=== PATIENT | female | born 1990 | race Caucasian/White ===

== ENCOUNTER 2019-06-17 23:25 | Inpatient (IN) | payer BC ==
[2019-06-18] MEDS ORDERED: Nicotine 21 MG PATCH TOP SCH (00:30)
[2019-06-18] MEDS ORDERED: Nicotine 14 MG PATCH ONE (00:35)
--- NOTE | 2019-06-18 00:39 | PDOC.FPRHP ---
- History of Present Illness Chief Complaint: right lateral chest pain History of Present Illness: 29-year-old female with past medical history of polycythemia, diagnosed four months ago, presents for emergency department via transfer with a right lower lobe pulmonary emboli. Patient woke up this morning with right lateral chest pain with deep inspiration. This pain slowly worsened throughout the day becoming excruciating at 6 PM. She went to urgent care originally sent the emergency department. Patient denies any shortness of breath or palpitations. Patient denies any dizziness/lightheadedness/near passing out. Patient denies any headache nausea/ vomiting/diarrhea. Pt states she has not recently been immobile, denies long trips in car or plane. She denies any history of DVT or PE. Pt states she started to experience the sensation of "a lump in her throat," on Tuesday, which spread to central chest pain. She thought it was related to her PUD and reflux symptoms. She smokes 1ppd of cigarettes. LMP was in 2012. Pt takes depo-prevara for contraception management, and does not experience periods on this medication. She tried phlebotomy for the polycythemia once, but did not like the way it made her feel to continue the recommended treatment of the polycythemia. ED course: D-dimer 722, CTA: several small PE in RLL. Possible surrounding infarctions in lung. Pt started on Heparin drip and treated with dilaudid, ketorolac, and morphine for pain. EKG sinus tach at 107 bpm. - Allergies/Adverse Reactions Allergies Allergy/AdvReac Type Severity Reaction Status Date / Time No Known Drug Allergies Allergy Unverified 06/18/19 03:38 - Home Medications Medication Instructions Recorded Confirmed Type HYDROcodone Bit/APAP 7.5/325 1 tab PO Q6HR PRN 06/18/19 06/18/19 History [[place] 7.5/325] Oxybutynin Chloride [Oxybutynin 15 mg PO DAILY 06/18/19 06/18/19 History Chloride ER] Pantoprazole [Protonix] 40 mg PO DAILY 06/18/19 06/18/19 History Ranitidine HCl 150 mg PO BID 06/18/19 06/18/19 History - History PMHx: Polycythemia, PUD, Bladder Spasms, Migraine CASE PSHx: Breast augmentation 2016, c-sections X2 2013, 2010. FHx: Pt does not know her parents. Non-contributory. Social: Smokes 1 ppd cigarettes for 15 years, drinks 2 mixed drinks daily, denies illicit drug use. From [employer]. Here for work. - Review of Systems General: denies: fever/chills, weight/appetite/sleep changes Eyes: denies: eye pain, vision changes ENT: denies: nasal congestion, rhinorrhea Respiratory: reports: cough (dry cough, no hemoptysis). denies: congestion, shortness of breath, exercise intolerance Cardiovascular: reports: chest pain. denies: palpitation, edema Gastrointestinal: reports: other (recent "lump in throat."). denies: nausea, vomiting Skin: denies: rashes, lesions Musculoskeletal: denies: pain, tenderness (BLE) Neurological: denies: syncope, weakness Psychological: denies: anxiety, depression - Vital signs BP: 128/86 HR: 84 RR: 20 Tmax: Pox: % on RA Wt: - Physical Exam Constitutional: NAD, awake, alert and oriented, well developed HEENT: normocephalic and atraumatic, PERRLA, EOMI, conjunctiva clear, no scleral icterus, grossly normal vision, grossly normal hearing, MMM, oropharynx clear Neck: supple, FROM, trachea midline, no LAD, no JVD, no thyromegaly Chest: no-tender to palpation, no lesions Heart: RRR, normal S1/S2, no murmurs/rubs/gallops, pulses present, no edema Lungs: CTAB, no respiratory distress, good air movement, no rales/rhonchi, no wheezing, no retractions Abdomen: soft, non-tender, bowel sounds present, no masses/distention, no hernias Musculoskeletal: normal structure, normal tone, ROM grossly normal Neurological: no focal deficit, normal sensation Skin: no rash/lesions, good turgor, capillary refill <2 seconds, no jaundice Heme/Lymphatic: no unusual bruising or bleeding, no purpura, no petechia, no LAD Psychiatric: normal mood and affect, good judgment and insight, intact recent and remote memory FMR H&P: Results - Labs Result Diagrams: 06/18/19 05:41 06/18/19 05:41 - EKG Interpretation EKG: sinus tach, HR 107 - Radiology Interpretation CT scan - chest Status: report reviewed by me (several RLL Pulmonary Emboli with posible surrounding infarcts.) FMR H&P: A/P - Problem List (1) Pulmonary embolism Current Visit: Yes Status: Acute Code(s): I26.99 - OTHER PULMONARY EMBOLISM WITHOUT ACUTE COR PULMONALE (2) Polycythemia Current Visit: Yes Status: Acute Code(s): D75.1 - SECONDARY POLYCYTHEMIA (3) Leukocytosis Current Visit: Yes Status: Acute Code(s): D72.829 - ELEVATED WHITE BLOOD CELL COUNT, UNSPECIFIED (4) PUD (peptic ulcer disease) Current Visit: No Status: Acute Code(s): K27.9 - PEPTIC ULC, SITE UNSP, UNSP AC OR CHR, W/O HEMOR OR PERF (5) Migraine Current Visit: No Status: Acute Code(s): G43.909 - MIGRAINE, UNSP, NOT INTRACTABLE, WITHOUT STATUS MIGRAINOSUS (6) Tobacco abuse disorder Current Visit: Yes Status: Chronic Code(s): Z72.0 - TOBACCO USE - Plan 29 y/o F [facility] and evaluation of PE, most likely secondary to Polycythemia. 1. RLL Pulmonary Emboli - CTA: several small filling defects in the RLL posterior branches, consistent with acute PE. Associated patchy infiltrate RLL posteriorly, could represent early infarct. - Pt started on heparin drip in ED. - EKG sinus tach at 107 bpm. - D- Dimer 722 - H/H 16.8/52.5 - Started Therapeutic lovenox. - Treating pleuritic chest pain with morphine and ketorolac. - Continuous cardiac monitoring 2. Polycythemia - Pt recently diagnosed X4 months ago. - underwent phlebotomy once, does not get regular phlebotomy treatments because how weak she greg afterwards. 3. Amenorrhea - Most likely secondary to Depo-prevara contraception management - Pt has not had a period since 2012 - Last depo shot was 2 months ago. - ordered urine test 4. Hx of PUD - Continue home pantoprazole - hold zantac - Started pepcid bid 5. Hx of bladder spasm's - Continue home Oxybutynin 6. Hx of Migraines - No current migraine or headache 7. Leukocytosis - Most likely reactive leukocytosis - Will monitor pt closely for sign/symptoms of infection 8. Tobacco abuse d/o - Counseled on cessation - 15 pack year smoker. Code status: Full code DVT ppx: Th Lovenox diet: regular diet Dispo: Stable, admitted to tele inpatient for anticipated >2 midnights FMR H&P: Upper Level - Pertinent history 29 y/o F PMHx polycythemia, GERD, tobacco abuse presents as transfer from outside ER. Pt reports that she began feeling chest pain Tuesday morning that got progressively worse throughout the day. The pain was on the R side and worse when she would take a deep breath. She found that she was beginning to have difficulty breathing due to the pain associated with taking a deep breath. She denies any alleviating factors. She denies any recent long plane rides or road trips. No recent trauma, broken bones or surgery. No h/o cancer. She denies any LE swelling or fevers. She has a h/o polycythemia diagnosed about 4 months ago and she received phlebotomy once, but felt bad during it so she did not want to do it again. She is not taking any medications related to her polycythemia. Denies any h/o prior blood clots. - Pertinent findings Vitals: BP: 121/86, Pulse: 97, Resp: 24, Temp: 98.9 (Oral), O2 sat: 98 on Room Air PE: Gen - alert, oriented, appears uncomfortable when taking a breath CV - RRR, no murmurs Lungs - CTAB, no wheezes, decreased effort Ext - no edema, calf tenderness, or palpable cord Labs: WBC 15, Hb 16.8, Hct 52.5, Platelet 313, Cr 0.6, d dimer 722, PT 16.6, INR 1.4 CTA chest: RLL posterior branches with multiple areas of filling defects concerning for PE and adjacent RLL pulmonary infiltrate concerning for pulmonary infarct. - Plan Date/Time: 06/18/19 0039 I, Kirsten Lennon MD, PGY-3, have evaluated this patient and agree with findings/ plan as outlined by procurement intern resident. Pertinent changes/additions are listed here. 1. Acute Pulmonary Embolism This is likely 2/2 polycythemia. Current H/H is 16.8/52.5. Pt not on aspirin or phlebotomy therapy. Pt has been started on heparin gtt by outside ER and has received morphine, dilaudid, toradol, 1L NS, zofran and still reports significant pain. -Will switch over to therapeutic lovenox -Morphine prn pain control -Monitor on telemetry -Monitor for signs of decompensation 2. RLL Pulmonary Infarct 2/2 PE -Incentive spirometry 3. Polycythemia -Pt likely needs to be on nursing home aspirin, will discuss this with pt as well as need to f/u with PCP for nursing home treatment plan 4. Leukocytosis Likely reactive -Will monitor for signs/symptoms of infection and trend 5. GERD -Continue home meds 6. Bladder spasm -Continue home meds 7. Tobacco abuse -preparole counseling aide on cessation Dispo: Admit to tele LOS: likely greater than 2 days Addendum - Attending - Attending Attestation Date/Time: 06/18/19 8010 I personally evaluated the patient and discussed the management with Dr. Flores. I agree with the History, Examination, Assessment and Plan documented above with any addition or exceptions noted below. The patient has been admitted for chest pain with inspiration. Her d-dime was over 700 and CTA chest shows pulmonary emboli. The patient was initially started on a heparin drip and is now on therapeutic lovenox. Pt is not requiring oxygen. Will continue meds for pain control. Pt should be able to transition to eliquis.
[2019-06-18] MEDS ORDERED: HYDROmorphone 0.5 MG/0.5 ML SYRINGE ONE (00:58)
[2019-06-18] MEDS ORDERED: HYDROmorphone 2 MG TAB PO PRN (01:24)
[2019-06-18] MEDS ORDERED: Morphine 4 MG/ML VIAL ONE (01:42)
[2019-06-18] MEDS ORDERED: Enoxaparin Sodium 60 MG/0.6 ML SYRINGE SC SCH ×2 (02:15→09:00)
[2019-06-18 03:01] VITALS: BMI 25.9
[2019-06-18] MEDS ORDERED: Morphine 2 MG/ML SYRINGE SLOW IVP PRN ×2 (03:01→09:57)
[2019-06-18] MEDS ORDERED: Acetaminophen 325 MG TAB PO PRN (03:01)
[2019-06-18] MEDS ORDERED: Ketorolac Tromethamine 15 MG/ML VIAL IVP SCH (06:00)
[2019-06-18] MEDS ORDERED: Ketorolac Tromethamine 30 MG/ML VIAL IVP SCH (06:00)
[2019-06-18 06:32] LABS: #Basophils 0.1 thou/uL (0.0-0.2); #Eosinphils 0.1 thou/uL (0.0-0.7); #Lymphocytes 4.2 thou/uL (1.20-3.40); #Monocytes 0.9 thou/uL (0.11-0.59); #Neutrophils 5.9 thou/uL (1.40-6.50); %Basophils 0.6 % (0.0-1.0); %Eosinophils 0.8 % (0.0-10.0); %Lymphocytes 37.5 % (21.0-51.0); %Monocytes 8.4 % (0.0-10.0); %Neutrophils 52.7 % (42.0-75.0); Hemoglobin 13.8 g/dL (12.0-16.0); Mean Corpuscular HGB CONC 32.8 g/dL (32.0-36.0); Mean Corpuscular Hemoglobin 31.3 pg (27.0-31.0); Mean Corpuscular Volume 95.4 fL (78.0-98.0); Mean Platelet Volume 7.3 fL (7.4-10.4); Platelet Count 261 thou/uL (130-400); RBC Distribution Width 13.2 % (11.5-14.5); Red Blood Cell (RBC) Count 4.41 mill/uL (4.20-5.40); White Blood Cell (WBC) Count 11.2 thou/uL (4.8-10.8)
[2019-06-18 06:54] LABS: ALT (SGPT) 8 U/L (8-55); AST (SGOT) 14 U/L (5-34); Albumin 3.1 g/dL (3.5-5.0); Alkaline Phosphatase 92 U/L (40-110); Anion Gap 10 mmol/L (10-20); BUN (Urea Nitrogen) 5 mg/dL (7.0-18.7); Bilirubin, Total 0.6 mg/dL (0.2-1.2); Calc. Creatinine Clearance 127 mL/min (70-130); Calcium 7.8 mg/dL (7.8-10.44); Carbon Dioxide 20 mmol/L (22-29); Chloride 109 mmol/L (98-107); Estimated GFR-MDRD Greater than 90; Globulin 2.4 g/dL (2.4-3.5); Glucose 91 mg/dL (70-105); Potassium 3.5 mmol/L (3.5-5.1); Protein, Total 5.5 g/dL (6.0-8.3); Sodium 135 mmol/L (136-145)
[2019-06-18] MEDS ORDERED: Enoxaparin Sodium 80 MG/0.8 ML SYRINGE SC SCH (09:00)
[2019-06-18] MEDS ORDERED: Famotidine 20 MG TAB PO SCH (09:00)
[2019-06-18] MEDS ORDERED: FLU VACC QS2019-20(6MOS UP)/PF 60 MCG/0.5 ML SYRINGE IM ONE (09:00)
[2019-06-18] MEDS ORDERED: HYDROcodone/Acetaminophen 5/325 mg Tablet PO PRN ×2 (09:57)
[2019-06-18] MEDS: Oxybutynin 5 MG TAB PO SCH ×3 (10:18→20:04)
[2019-06-18] MEDS: Acetaminophen 325 MG TAB PO SCH ×4 (10:49→17:18)
[2019-06-18] MEDS: Ibuprofen 600 MG TAB PO SCH ×3 (10:50→22:19)
[2019-06-18] MEDS ORDERED: Famotidine 20 MG TAB PO PRN (10:53)
[2019-06-18] MEDS ORDERED: Apixaban 5 MG TAB PO SCH (11:00)
[2019-06-18] MEDS ORDERED: HYDROcodone/Acetaminophen 7.5/325 mg Tablet PO PRN (11:17)
[2019-06-18 11:27] LABS: Pregnancy Test - Urine (BHCG) Negative (Negative)
[2019-06-18 11:28] LABS: Pregu Control Background? CLEAR/WHITE (CLR/WHITE); Pregu Control Bar Appear? YES (CONTROL BAR); Specific Gravity 1.029 (1.002-1.036)
[2019-06-18] MEDS ORDERED: Sucralfate 1 GM TAB PO SCH (11:30)
[2019-06-18] MEDS: HYDROcodone/Acetaminophen 7.5/325 mg Tablet PO PRN ×2 (15:03→20:04)
[2019-06-18] MEDS: Apixaban 5 MG TAB PO SCH (20:04)
[2019-06-18] MEDS ORDERED: Nicotine 14 MG PATCH TD SCH (21:15)
[2019-06-18] MEDS ORDERED: Ondansetron ODT 4 MG TAB SL PRN (21:56)
[2019-06-18] MEDS ORDERED: Melatonin 3 MG TAB PO PRN (23:00)
[2019-06-18] MEDS: Morphine 2 MG/ML SYRINGE SLOW IVP PRN (23:33)
[2019-06-19] MEDS: Acetaminophen 325 MG TAB PO SCH ×3 (02:14→05:21)
[2019-06-19] MEDS: Morphine 2 MG/ML SYRINGE SLOW IVP PRN (05:19)
[2019-06-19] MEDS: Ibuprofen 600 MG TAB PO SCH ×2 (05:20→09:10)
[2019-06-19] MEDS ORDERED: Acetaminophen 325 MG TAB PO PRN (06:30)
--- NOTE | 2019-06-19 06:35 | PDOC.FM ---
- Subjective Subjective: Reports severe pain overnight. Reports pain was tolerable until she tried to sleep. She feels that she gets behind on her pain medication when she sleeps through a dose. Denies fevers, chills, nausea, vomiting. Has been using incentive spirometer. - Objective MAR Reviewed: Yes Vital Signs & Weight: Vital Signs (12 hours) Temp Pulse Resp BP Pulse Ox 06/19/19 03:25 97.8 F 77 16 107/63 94 L 06/18/19 20:02 98.4 F 55 L 20 117/79 98 Weight Admit Weight 62.233 kg Weight 62.233 kg I&O: 06/17/19 06/18/19 06/19/19 06:59 06:59 06:59 Intake Total 480 1930 Output Total 400 Balance 480 1530 Result Diagrams: 06/18/19 05:41 06/18/19 05:41 Phys Exam - Physical Examination In distress with deep breathes HEENT: moist MMs Neck: supple Respiratory: no wheezing, clear to auscultation bilateral Cardiovascular: RRR, no significant murmur Gastrointestinal: soft, non-tender Musculoskeletal: no edema Neurological: moves all 4 limbs Psychiatric: normal affect, A&O x 3 Skin: no rash Dx/Plan - Plan Plan: RLL Pulmonary Emboli - CTA: several small filling defects in the RLL posterior branches, consistent with acute PE. Associated patchy infiltrate RLL posteriorly, could represent early infarct. - Continue Eliquis 5mg BID - Will schedule pts home [place] 7/325 for pain, scheduled motrin. Polycythemia - Pt recently diagnosed X4 months ago. - underwent phlebotomy once, does not get regular phlebotomy treatments because how weak she greg afterwards. Amenorrhea - Most likely 2/2 to Depo-prevara (last given 2mo ago) - Pt has not had a period since 2012 - Urine neg - Depo does not contain estrogen but still may be [place] to switch to nonhormonal form of control such as copper IUD, will defer to pts PCP PUD - Continue home pantoprazole - Pepcid qHS PRN Bladder Spasms - Continue home Oxybutynin Migraines Tobacco abuse - Counseled on cessation - 15 pack year smoker Code status: Full DVT ppx: Th Lovenox Addendum - Attending - Attending Attestation Date/Time: 06/19/19 6820 I personally evaluated the patient and discussed the management with Dr. Dueñas. I agree with the History, Examination, Assessment and Plan documented above with any addition or exceptions noted below. Patient transitioned to eliquis. Scheduling norco. Will d/c home, pt states she has her own supply of norco from her pcp. She is not requiring oxygen. Pt' s PCP in [place] was updated on pt's condition yesterday.
[2019-06-19] MEDS ORDERED: Pantoprazole 40 MG GRANULES PACKET PO SCH ×2 (08:00→09:00)
[2019-06-19] MEDS: HYDROcodone/Acetaminophen 7.5/325 mg Tablet PO PRN (08:47)
[2019-06-19] MEDS: Apixaban 5 MG TAB PO SCH (08:48)
[2019-06-19] MEDS: Oxybutynin 5 MG TAB PO SCH (08:49)
[2019-06-19] MEDS ORDERED: Naloxone HCl 0.4 mg/ml Vial IV PRN ×2 (08:56→08:58)
[2019-06-19] MEDS: HYDROcodone/Acetaminophen 7.5/325 mg Tablet PO SCH ×2 (09:09→12:58)
[2019-06-19 12:22] VITALS: BP 109/76; TEMP 98.3
--- NOTE | 2019-06-20 09:20 | DIS ---
DATE OF ADMISSION: 06/18/2019 DATE OF DISCHARGE: 06/19/2019 RESIDENT: Crystal Dueñas MD, PGY-2. ADMITTING ATTENDING: Kaitlynn Garza MD DISCHARGE ATTENDING: Kaitlynn Garza MD CONSULTS: None. PROCEDURES PERFORMED: CTA outside hospital evidence of several small filling defects in the right lower lobe posterior branches consistent with acute pulmonary embolism, associated patchy infiltrate right lower lobe posteriorly could represent early infarct. PRIMARY DIAGNOSES: 1. Right lower lobe pulmonary emboli. 2. Polycythemia. SECONDARY DIAGNOSES: 1. Amenorrhea. 2. Peptic ulcer disease. 3. Bladder spasms. 4. Migraines. 5. Tobacco abuse. DISCHARGE MEDICATIONS: 1. Apixaban (Eliquis) 5 mg b.i.d. 2. Pepcid 20 mg at bedtime p.r.n. 3. [place] 7.5/325 mg two tabs q.4 hours p.r.n., 36 tabs. 4. Ibuprofen 600 mg q.6 hours scheduled. 5. Melatonin 3 mg at bedtime. 6. Naloxone 1 mg nasal spray q.5 minutes. 7. Oxybutynin 15 mg daily. 8. Pantoprazole 40 mg daily, 30 minutes prior to breakfast. HISTORY OF PRESENT ILLNESS/HOSPITAL COURSE: Ms. Soto is a 29-year-old female with past medical history of recently diagnosed polycythemia, 4 months ago, who presented to the emergency department via transfer from freestanding ER with right lower lobe pulmonary emboli. The patient was in town for java enterprise architect training. When she woke up, right lateral chest pain with deep inspiration that worsened throughout the day. She has tried phlebotomy in the past for polycythemia but did not like the way it made her feel, so she did not continue the treatment. In the ED, she was noted to have a D-dimer of 722. CTA showed several small PEs in the right lower lobe and possible infarction. She was started on a heparin drip and treated with Dilaudid, ketorolac and morphine for pain. Her EKG showed sinus tachycardia at 107 beats per minute, which she was transferred to our ER. She was started on therapeutic Lovenox and this was transitioned to Eliquis prior to discharge. Consider starting warfarin, however, patient did not wish to stay in the hospital to bridge and did not want frequent lab draws. Discharged with scheduled home [place] 7.5/[address] Chavez, patient's PCP was contacted in [place] and updated with patient's status. She was arranged to follow up on 06/21/2019 and given enough [place] to last her until her appointment. In terms of her amenorrhea, this is likely secondary to her Depo-Provera shot. Her last shot was two months ago. Urine test was negative. May consider switching to copper IUD for nonhormonal contraception. However, the Depo-Provera only contains progesterone and is safer than estrogen containing contraception. The patient has a history of peptic ulcer disease. She was continued on her home pantoprazole and recommended switching from Zantac to Pepcid due to recent recall related to Zantac being linked to cancer. Her chronic medical problem of bladder spasm was treated with home oxybutynin. DISPOSITION: Stable. DISCHARGE INSTRUCTIONS: 1. Location: Home. 2. Diet: Regular. 3. Activity: No restrictions. 4. Followup: Follow up with Dr. Chavez, patient's PCP, on 06/21/2019. Job ID: [id number] [id number]
== END 2019-06-19 13:10 | disposition home or self-care (01) | DRG 176 ==
LOC: ERS 23:25 → 2NO 06-18 00:32
PROVIDERS: ADMIT Emergency Medicine; ATTEND Emergency Medicine
DX: I26.99 Other pulmonary embolism without acute cor pulmonale (principal); D75.1 Secondary polycythemia; N91.2 Amenorrhea, unspecified; K27.9 Peptic ulcer, site unspecified, unspecified as acute or chronic, without hemorrhage or perforation; N32.89 Other specified disorders of bladder; G43.909 Migraine, unspecified, not intractable, without status migrainosus; K21.9 Gastro-esophageal reflux disease without esophagitis; F17.210 Nicotine dependence, cigarettes, uncomplicated; Z79.899 Other long term (current) drug therapy; Z28.21 Immunization not carried out because of patient refusal
CPT/HCPCS: 36415; 80053; 81025; 85025; 96374; 96375; J1170; J1650; J1885; J2270; Q0162